=== PATIENT | female | born 2000 | race African-American/Black ===

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

== ENCOUNTER 2019-12-25 17:17 | Emergency (ER) | payer BC ==
[~2019-12-25] VITALS: Ht 152.4 cm; Wt 47.3 kg
[2019-12-25 17:37] VITALS: BP 117/63; Ht 152.4 cm; Wt 47.3 kg
== END 2019-12-25 20:35 | disposition left against medical advice (07) ==
LOC: D.ER 17:17
DX: L08.9 Local infection of the skin and subcutaneous tissue, unspecified (principal); Z53.21 Procedure and treatment not carried out due to patient leaving prior to being seen by health care provider